=== PATIENT | male | born 1950 ===

== ENCOUNTER → 2017-12-10 18:57 | Outpatient (REF) | payer OTHER, SELFPAY ==
[2017-12-10 19:18] LABS: Cholesterol 217 mg/dL (140-199); HDL Cholesterol 51 mg/dL (40-60); LDL Cholesterol Calculated 116 mg/dL (<100); Triglycerides 251 mg/dL (35-150)
== END ==
LOC: LAB 18:57
PROVIDERS: Visit Provider Family Medicine
DX: E78.5 Hyperlipidemia, unspecified (principal)
CPT/HCPCS: 80061

== ENCOUNTER → 2018-01-27 12:23 | Outpatient (REF) | payer OTHER, MEDICARE, SELFPAY | LOC: LAB 12:23 | PROVIDERS: Visit Provider Family Medicine | DX: N39.0 Urinary tract infection, site not specified (principal) | CPT/HCPCS: 87086 ==

== ENCOUNTER → 2018-01-31 18:27 | Outpatient (REF) | payer OTHER, SELFPAY ==
[2018-01-31 18:54] LABS: Creatinine Urine Random 45.8 mg/dL
== END ==
LOC: LAB 18:27
PROVIDERS: Visit Provider Family Medicine
DX: R31.9 Hematuria, unspecified (principal)
CPT/HCPCS: 82570